=== PATIENT | male | born 1980 | race Native Hawaiian/Other Pacific Islander ===

== ENCOUNTER 2017-12-28 07:03 | Emergency (ER) | payer SELFPAY ==
[2017-12-28 07:12] VITALS: O2SAT 100
[2017-12-28] MEDS ORDERED: Sodium Chloride 0.9% 1,000 ML IV ONE (07:30)
[2017-12-28] MEDS ORDERED: Aspirin 325 mg EC Tablets PO STA (07:30)
[2017-12-28] MEDS ORDERED: Aspirin 325 mg EC Tablets PO ONE (07:52)
[2017-12-28] MEDS ORDERED: Sodium Chloride 0.9% 1,000 ML ONE (07:52)
[2017-12-28 07:53] LABS: EOS # 0.1 K/uL (0.0-0.7); MONO # 0.6 K/uL (0.0-0.8)
--- NOTE | 2017-12-28 07:57 | C.PDOC ---
History Of Present Illness 37 y/o male with history of liver cirrhosis presents to ED with complains of sob on exertion for 2 days. Patient states he walks up one flight of stairs and feels shortness or breath. Patient reports yesterday at 730pm he developed sharp left sided chest pain that lasted 2 seconds, and resolved on its own. Patient reports cough non-productive 2 weeks ago but has improved. Patient is a former smoker and quit 3 months ago. In ED patient denies chest pain, sob, cough, nausea, vomiting or any other complaints at this time. Time Seen by Provider: 12/28/17 07:14 Chief Complaint (Nursing): Cough, Cold, Congestion History Per: Patient History/Exam Limitations: no limitations Onset/Duration Of Symptoms: Days Current Symptoms Are (Timing): Still Present Quality: Sharp Past Medical History Reviewed: Historical Data, Nursing Documentation, Vital Signs Vital Signs: Last Vital Signs Temp 99.1 F 12/28/17 08:58 Pulse 65 12/28/17 08:58 Resp 20 12/28/17 08:58 BP 110/60 12/28/17 08:58 Pulse Ox 100 12/28/17 09:29 - Medical History Other PMH: liver cirrhosis Surgical History: No Surg Hx Family History: States: No Known Family Hx - Social History Hx Alcohol Use: Yes Hx Substance Use: No - Immunization History Hx Tetanus Toxoid Vaccination: No Hx Influenza Vaccination: No Hx Pneumococcal Vaccination: No Review Of Systems Constitutional: Negative for: Fever, Chills Cardiovascular: Positive for: Chest Pain Respiratory: Positive for: SOB with Excertion. Negative for: Cough, Shortness of Breath Gastrointestinal: Negative for: Nausea, Vomiting Musculoskeletal: Negative for: Neck Pain, Back Pain Skin: Negative for: Rash Physical Exam - Physical Exam Appears: Non-toxic, No Acute Distress Skin: Warm, Dry, No Rash Head: Atraumatic, Normacephalic Eye(s): bilateral: Normal Inspection, EOMI Nose: Normal, No Flaring Oral Mucosa: Moist Neck: Normal ROM, Supple Chest: Symmetrical, No Tenderness Cardiovascular: Rhythm Regular, No Murmur Respiratory: Normal Breath Sounds, No Rales, No Rhonchi, No Wheezing Gastrointestinal/Abdominal: Bowel Sounds, Soft, No Tenderness, No Distention, No Guarding, No Rebound Back: Normal Inspection, No CVA Tenderness, No Vertebral Tenderness Extremity: Bilateral: Atraumatic, No Pedal Edema, Normal Color And Temperature, Normal ROM Pulses: Left Radial: Normal Neurological/Psych: Oriented x3, Normal Speech Gait: Steady ED Course And Treatment - Laboratory Results Result Diagrams: 12/28/17 07:48 12/28/17 07:48 Lab Interpretation: No Acute Changes ECG: Interpreted By Me, Viewed By Me ECG Rhythm: Sinus Rhythm ECG Interpretation: No Acute Changes Interpretation Of ECG: NS at 69 bpm with normal axis and no ST-T changes. No priors available for comparison O2 Sat by Pulse Oximetry: 100 (RA) Pulse Ox Interpretation: Normal - Radiology CXR: Interpreted by Me, Viewed By Me CXR Interpretation: Yes: No Acute Disease, Heart Size (normal) Medical Decision Making Medical Decision Making: Impression: SOB x 2 days on exertion Prior records reviewed: none available for review Plan: * EKG * CXR * Labs * Aspirin Progress: Patient assessed and examined. EKG obtained and reviewed with no STEMI. Patient placed on seat joiner chainstitch. Orders placed for labs including CE, and CXR. ASA given PO. Patient remained well and observed in ED with no changes on seat joiner chainstitch. All diagnostics reviewed , labs showed no acute findings, neg trop, no elevated BNP or lipids. CXR showed no cardiopulmonary disease. Based on negative findings: the absence of significant EKG abnormalities, the lack of suggestive x-ray findings, the absence of significant abnormalities on cardiac monitoring and GUEVARA score of 0; low clinical suspicion for ACS. Re-evaluation Time: 0845 Patient re-evaluated was sitting comfortably on stretcher speaking on his cellphone. Patient states he feels well and offers no complaints, denies any chest pain or SOB at this time. I discussed results with patient and provide copy of lab and imaging reports. Patient expresses understanding. Counseling was provided regarding the diagnosis. I advised follow up with primary doctor or clinic and cardiology if symptoms continue. All questions answered and there is agreement with the plan to discharge home with instructions. Patient is stable for discharge. Advised to return if symptoms persist or worsen. Dispo: Discharge home. Patient was recommended to follow up with PCP or clinic in 1-2 days. Return to ED if symptoms worsen. Disposition Counseled Patient/Family Regarding: Studies Performed, Diagnosis, Need For Followup - Disposition Referrals: Suri Ramesh MD [Staff Provider] - Disposition: HOME/ ROUTINE Disposition Time: 08:48 Condition: GOOD Additional Instructions: Thank you for letting us take care of you today. The emergency medical care you received today was directed at your acute symptoms. Your labs and chest xray were normal. Please contact your doctor or call one of the physicians/clinics you have been referred to that are listed on the Patient Visit Information form that is included in your discharge packet. Bring any paperwork you were given at discharge with you along with any medications you are taking to your follow up visit. Our treatment cannot replace ongoing medical care by a primary care provider (PCP) outside of the emergency department. Return to the Emergency Department if your symptoms worsen, do not improve, or if you have any other problems. Thank you for allowing the [facility] team to be part of your care today. Your provider was LEONID Rosas Instructions: Shortness of Breath (Dyspnea) Forms: [employer] ([place]) - POA Present On Arrival: None - Clinical Impression Clinical Impression: Exertional dyspnea, Ex-smoker - PA / DIRECTOR OF ACQUISITION MARKETING / Resident Statement MD/DO has reviewed & agrees with the documentation as recorded. - Scribe Statement The provider has reviewed the documentation as recorded by the Kimmieibnoy Hennessy All medical record entries made by the Son were at my direction and personally dictated by me. I have reviewed the chart and agree that the record accurately reflects my personal performance of the history, physical exam, medical decision making, and the department course for this patient. I have also personally directed, reviewed, and agree with the discharge instructions and disposition.
--- NOTE | 2017-12-28 08:03 | RAD ---
Chest x-ray two views History: Shortness of breath. Comparison: None available. Findings: No focal infiltrate or effusion. Bibasilar breast and nipple shadows. Impression: No focal infiltrate or effusion.
[2017-12-28 08:05] LABS: BASO % 0.4 % (0.0-2.0); EOS % 2.3 % (0.0-4.0); HEMOGLOBIN 15.1 g/dL (12.0-18.0); LYMPH # 1.2 K/uL (1.0-4.3); LYMPH % 25.7 % (20.0-40.0); MEAN CELL VOLUME 91.9 fL (80.0-94.0); MEAN CORPUSCULAR HEMOGLOBIN 32.7 pg (27.0-31.0); MEAN CORPUSCULAR HGB CONC 35.5 g/dL (33.0-37.0); MEAN PLATELET VOLUME 10.3 fL (7.2-11.7); MONO % 13.3 % (0.0-10.0); NEUT # 2.8 K/uL (1.8-7.0); NEUT % 58.3 % (50.0-75.0); NRBC % 0.1 % (0.0-2.0); RBC 4.61 Mil/uL (4.40-5.90); RED CELL DISTRIBUTION WIDTH 13.6 % (11.5-14.5); WHITE BLOOD COUNT 4.8 K/uL (4.8-10.8)
[2017-12-28 08:10] LABS: ALT/SGPT 41 U/L (21-72); AST/SGOT 63 U/L (17-59); BLOOD UREA NITROGEN 11 mg/dL (9-20); CALCIUM 9.3 mg/dl (8.6-10.4); GFR AFRICAN-AMERICAN > 60; GFR NON-AFRICAN AMERICAN > 60; HDL CHOLESTEROL 56 mg/dL (30-70); INR 1.3; PROTHROMBIN TIME 14.8 SECONDS (9.7-12.2)
[2017-12-28 08:19] LABS: B-TYPE NATRIURETIC PEPTIDE 19.1 pg/mL (0-450)
[2017-12-28 08:21] LABS: LDL CHOLESTEROL 51 mg/dL (0-129)
[2017-12-28 08:21] LABS: SQUAMOUS EPITHIAL 3 /hpf (0-5); URINE BILIRUBIN NEGATIVE (NEGATIVE); URINE BLOOD 1+ (NEGATIVE); URINE CALCIUM OXALATE CRYSTALS RARE /hpf (<OCC); URINE CLARITY Clear (Clear); URINE COLOR Yellow (YELLOW); URINE GLUCOSE (UA) NORMAL (Normal); URINE LEUKOCYTE ESTERASE 1+ Leu/uL (Negative); URINE PROTEIN NEGATIVE (NEGATIVE)
[2017-12-28 08:59] VITALS: BP 110/60; PULSE 65; RESP 20; TEMP 99.1
--- NOTE | 2017-12-28 17:31 | CARD ---
APPROVED REPORT EKG Measurement Heart [id number] <Conclusion> Normal sinus rhythm Normal ECG
== END 2017-12-28 09:02 | disposition home or self-care (01) ==
LOC: C.ER 07:03
DX: R06.09 Other forms of dyspnea (principal); Z87.891 Personal history of nicotine dependence